=== PATIENT | male | born 1995 | race Caucasian/White ===

== ENCOUNTER 2016-12-02 10:04 | Emergency (ER) | payer MEDICAID ==
[~2016-12-02] VITALS: Ht 180.3 cm; Wt 95.2 kg
[2016-12-02 10:05] VITALS: BP 144/79
[2016-12-02] MEDS ORDERED: CLINDAMYCIN 300 MG CAPSULE PO ONE (10:30)
[2016-12-02] MEDS ORDERED: IBUPROFEN 200 MG TABLET PO ONE (10:30)
[2016-12-02] MEDS ORDERED: IBUPROFEN 200 MG TABLET ONE (10:35)
[2016-12-02] MEDS ORDERED: CLINDAMYCIN 300 MG CAPSULE ONE (10:41)
== END 2016-12-02 11:28 | disposition home or self-care (01) ==
LOC: ED 11:20
DX: K04.7 Periapical abscess without sinus (principal); F17.200 Nicotine dependence, unspecified, uncomplicated
CPT/HCPCS: 99283

== ENCOUNTER 2016-12-03 11:38 | Emergency (ER) | payer MEDICAID ==
[~2016-12-03] VITALS: Ht 180.3 cm; Wt 94.8 kg
[2016-12-03 11:54] VITALS: BP 140/83
== END 2016-12-03 12:42 | disposition home or self-care (01) ==
LOC: ED 12:25
DX: K13.0 Diseases of lips (principal); K02.9 Dental caries, unspecified
CPT/HCPCS: 99284

== ENCOUNTER 2017-05-01 10:30 | Emergency (ER) | payer MEDICAID ==
[~2017-05-01] VITALS: Ht 180.3 cm; Wt 93.2 kg
[2017-05-01 10:37] VITALS: BP 128/78
== END 2017-05-01 12:06 | disposition home or self-care (01) ==
LOC: ED 12:05
DX: M67.431 Ganglion, right wrist (principal)
CPT/HCPCS: 29125; 99283